=== PATIENT | female | born 1990 | race American Indian/Alaskan Native ===

== ENCOUNTER 2017-02-18 02:48 | Emergency (ER) | payer MEDICAID ==
[2017-02-18] MEDS ORDERED: DUONEB 0.5 MG-3 MG/3 ML SOLN IH ONE ×4 (02:56→04:00)
--- NOTE | 2017-02-18 07:11 | Emergency Department Report ---
ED Asthma HPI - General Chief Complaint: Adult Asthma Stated Complaint: ASTHMA Time Seen by Provider: 02/18/17 06:54 Source: patient, EMS, RN notes reviewed Mode of arrival: Stretcher Limitations: No Limitations - History of Present Illness Initial Comments: 27-year-old female presents to the emergency department via EMS complaining of an asthma attack. Patient states she began having difficulty breathing at approximately 3 PM yesterday afternoon. Patient reports wheezing with tightness in her chest. There was also a mild nonproductive cough. She denies fevers. Patient states she is 3 months and has been using her albuterol inhaler at home. EMS administered 5 mg of albuterol, 125 mg of IV Solu-Medrol, and 2 g of IV magnesium. Patient reports feeling better at this time. There are no other complaints. MD Complaint: "asthma attack" -: Gradual, days(s) (1) Time: 15:00 Asthma History: childhood onset Severity: mild Context: none known Associated Symptoms: dry cough, chest pain (tightness) Treatments Prior to Arrival: inhaled bronchodilator, IV steroid - Related Data Current Asthma Therapy: inhaled bronchodilator Previous Rx's Medication Instructions Recorded Last Taken Type Albuterol Sulfate [Ventolin HFA] 2 puff IH Q4H PRN #1 [email or web address] 02/18/17 Unknown Rx ED Review of Systems ROS: Stated complaint: ASTHMA Other details as noted in HPI Comment: All other systems reviewed and negative Respiratory: cough, shortness of breath, wheezing Cardiovascular: chest pain ED Past Medical Hx - Past Medical History Previous Medical History?: Yes Hx Asthma: Yes - Surgical History Past Surgical History?: No - Family History Family history: no significant - Social History Smoking Status: Never Smoker Substance Use Type: None - Medications Home Medications: Home Medications Medication Instructions Recorded Confirmed Last Taken Type Albuterol Sulfate [Ventolin HFA] 2 puff IH Q4H PRN #1 [email or web address] 02/18/17 Unknown Rx ED Physical Exam - General Limitations: No Limitations General appearance: alert, in no apparent distress - Head Head exam: Present: atraumatic, normocephalic - Eye Eye exam: Present: normal appearance, PERRL, EOMI - ENT ENT exam: Present: normal exam, normal orophraynx, mucous membranes moist - Neck Neck exam: Present: normal inspection, full ROM. Absent: tenderness - Respiratory Respiratory exam: Present: normal lung sounds bilaterally. Absent: respiratory distress - Cardiovascular Cardiovascular Exam: Present: normal rhythm, tachycardia, normal heart sounds - GI/Abdominal GI/Abdominal exam: Present: soft, normal bowel sounds. Absent: distended, tenderness - Extremities Exam Extremities exam: Present: normal inspection, full ROM. Absent: tenderness - Back Exam Back exam: Present: normal inspection, full ROM. Absent: tenderness - Neurological Exam Neurological exam: Present: alert, oriented X3. Absent: motor sensory deficit - Skin Skin exam: Present: warm, dry, intact ED Course Vital Signs 02/18/17 02/18/17 02/18/17 02:48 02:50 03:00 Temperature 98.1 F Pulse Rate 125 H 108 H Pulse Rate [ Bilateral Throughout] Respiratory 24 19 Rate Respiratory Rate [Bilateral Throughout] Blood Pressure 142/96 132/60 Blood Pressure [Right] O2 Sat by Pulse 100 100 100 Oximetry 02/18/17 02/18/17 02/18/17 03:30 04:00 04:16 Temperature Pulse Rate 119 H 133 H Pulse Rate [ 111 H Bilateral Throughout] Respiratory 17 22 Rate Respiratory 25 H Rate [Bilateral Throughout] Blood Pressure 127/64 127/64 Blood Pressure 127/64 [Right] O2 Sat by Pulse 100 96 95 Oximetry 02/18/17 02/18/17 02/18/17 04:30 05:00 05:30 Temperature Pulse Rate 116 H 112 H Pulse Rate [ 120 H Bilateral Throughout] Respiratory 17 15 18 Rate Respiratory 23 Rate [Bilateral Throughout] Blood Pressure 121/67 125/71 115/68 Blood Pressure [Right] O2 Sat by Pulse 96 96 96 Oximetry 02/18/17 02/18/17 06:00 06:30 Temperature Pulse Rate 116 H Pulse Rate [ Bilateral Throughout] Respiratory 16 16 Rate Respiratory Rate [Bilateral Throughout] Blood Pressure 123/62 129/71 Blood Pressure [Right] O2 Sat by Pulse 97 97 Oximetry ED Medical Decision Making - EKG Data -: EKG Interpreted by Me EKG shows normal: sinus rhythm, axis, intervals, QRS complexes, ST-T waves Rate: tachycardia - EKG Data When compared to previous EKG there are: previous EKG unavailable Interpretation: normal EKG - Medical Decision Making Patient has remained asymptomatic following her EMS treatments. Patient remains tachycardic, but is currently 3 months and maintains a normal oxygen saturation on room air. Patient will be discharged home at this time to follow up with her HARDENER HELPER. - Differential Diagnosis asthma exacerbation Critical care attestation.: If time is entered above; I have spent that time in minutes in the direct care of this critically ill patient, excluding procedure time. ED Disposition Clinical Impression: Asthma affecting , antepartum Disposition: DISCHARGED TO HOME OR SELFCARE Is pt being admited?: No Condition: Stable Instructions: Asthma (ED) Additional Instructions: Take all medications as directed. Be sure to follow up with your doctor. If symptoms worsen, or if new symptoms develop, return to the emergency department. Prescriptions: Albuterol Sulfate [Ventolin HFA] 2 puff IH Q4H PRN #1 [email or web address] PRN Reason: Shortness Of Breath Referrals: PRIMARY CARE, [Primary Care Provider] - 3-5 Days Time of Disposition: 07:15
[2017-02-18] MEDS ORDERED: PROVENTIL IH ONE (07:54)
[2017-02-18 08:37] VITALS: BP 118/68
== END 2017-02-18 08:36 | disposition home or self-care (01) ==
LOC: ED 02:48
DX: O99.511 Diseases of the respiratory system complicating pregnancy, first trimester (principal)
CPT/HCPCS: 93005; 93010; 94640

== ENCOUNTER 2018-01-22 05:26 | Emergency (ER) | payer MEDICAID ==
[2018-01-22] MEDS ORDERED: MAGNESIUM SULFATE 2GM/50ML 2 GM/50 ML BAG IV ONE (05:50)
[2018-01-22] MEDS ORDERED: PROVENTIL IH ONE ×2 (05:50→06:04)
[2018-01-22] MEDS ORDERED: ATROVENT IH ONE ×2 (05:50→05:51)
[2018-01-22] MEDS ORDERED: PROAIR IH PRN (05:51)
[2018-01-22] MEDS ORDERED: ZOFRAN ONE (05:57)
[2018-01-22] MEDS ORDERED: ZOFRAN IV ONE (06:02)
--- NOTE | 2018-01-22 08:53 | Emergency Department Report ---
ED Shortness of Breath HPI - General Chief Complaint: Dyspnea/Respdistress Stated Complaint: JOSUE Time Seen by Provider: 01/22/18 08:37 Source: patient Mode of arrival: Ambulatory Limitations: No Limitations - History of Present Illness Initial Comments: History of asthma here evaluation for acute exacerbation, no fever no chest pain or swelling no body aches no headache no stiff neck no rash does have tachycardia that was present on last visit for same when she was preg and felt to be related to preg and bronchodilators, no calf pain or swelling, delivered 4 months ago, does have green cough, isnot on any preventive meds just rescue inh Complaint: "asthma attack" Known History Of: asthma Associated Symptoms: denies other symptoms - Related Data Previous Rx's Medication Instructions Recorded Last Taken Type Albuterol Sulfate [Ventolin HFA] 2 puff IH Q4H PRN #1 [email or web address] 01/22/18 Unknown Rx Azithromycin 250 mg PO DAILY #6 tablet 01/22/18 Unknown Rx Prednisone 50 mg PO DAILY #5 tablet 01/22/18 Unknown Rx Allergies Allergy/AdvReac Type Severity Reaction Status Date / Time No Known Allergies Allergy Verified 09/01/17 21:37 ED Review of Systems ROS: Stated complaint: JOSUE Other details as noted in HPI Comment: All other systems reviewed and negative Constitutional: denies: diaphoresis, fever, malaise, weakness ENT: denies: dental pain, hearing loss, epistaxis Respiratory: cough, shortness of breath, wheezing. denies: orthopnea, SOB with exertion, SOB at rest, stridor Cardiovascular: denies: chest pain, palpitations, dyspnea on exertion, orthopnea , edema, syncope, paroxysmal nocturnal dyspnea Endocrine: denies: excessive sweating, flushing, intolerance to cold, intolerance to heat Gastrointestinal: denies: abdominal pain, nausea, vomiting, diarrhea, constipation, hematemesis, melena, hematochezia Musculoskeletal: denies: joint swelling, arthralgia, myalgia Neurological: denies: numbness, paresthesias, confusion, abnormal gait, vertigo Psychiatric: denies: auditory hallucinations, visual hallucinations, homicidal thoughts, suicidal thoughts ED Past Medical Hx - Past Medical History Hx Hypertension: No Hx Diabetes: No Hx Deep Vein Thrombosis: No Hx Renal Disease: No Hx Sickle Cell Disease: No Hx Seizures: No Hx Asthma: Yes (currently - albuteral 2x a month) Hx HIV: No - Social History Smoking Status: Never Smoker Substance Use Type: None - Medications Home Medications: Home Medications Medication Instructions Recorded Confirmed Last Taken Type Albuterol Sulfate [Ventolin HFA] 2 puff IH Q4H PRN #1 [email or web address] 01/22/18 Unknown Rx Azithromycin 250 mg PO DAILY #6 tablet 01/22/18 Unknown Rx Prednisone 50 mg PO DAILY #5 tablet 01/22/18 Unknown Rx ED Physical Exam - General Limitations: No Limitations General appearance: alert, anxious - Head Head exam: Present: atraumatic, normocephalic - Eye Eye exam: Present: PERRL, EOMI - ENT ENT exam: Present: normal exam, normal orophraynx - Neck Neck exam: Present: normal inspection. Absent: tenderness, meningismus - Respiratory Respiratory exam: Present: wheezes, rhonchi, prolonged expiratory. Absent: stridor, chest wall tenderness, accessory muscle use - Cardiovascular Cardiovascular Exam: Present: tachycardia - GI/Abdominal GI/Abdominal exam: Present: soft. Absent: tenderness, guarding, rebound, mass, pulsatile mass - Extremities Exam Extremities exam: Present: normal inspection. Absent: tenderness, normal capillary refill, pedal edema, joint swelling, calf tenderness - Back Exam Back exam: Present: normal inspection. Absent: CVA tenderness (R), CVA tenderness (L), muscle spasm, paraspinal tenderness, vertebral tenderness - Neurological Exam Neurological exam: Present: alert, oriented X3, CN II-XII intact. Absent: motor sensory deficit ED Course Vital Signs 01/22/18 01/22/18 01/22/18 05:34 05:38 05:46 Temperature 97.7 F Pulse Rate 147 H 145 H 147 H Pulse Rate [ Right Middle Lobe] Respiratory 38 H 27 H 31 H Rate Respiratory Rate [Right Middle Lobe] Blood Pressure Blood Pressure 143/92 [Right] O2 Sat by Pulse 91 91 Oximetry 01/22/18 01/22/18 01/22/18 06:00 06:12 06:16 Temperature Pulse Rate 120 H 105 H Pulse Rate [ 94 H Right Middle Lobe] Respiratory 21 20 Rate Respiratory 20 Rate [Right Middle Lobe] Blood Pressure Blood Pressure [Right] O2 Sat by Pulse 98 99 Oximetry 01/22/18 01/22/18 01/22/18 06:19 06:30 06:45 Temperature Pulse Rate 101 H 120 H Pulse Rate [ Right Middle Lobe] Respiratory 30 H 18 16 Rate Respiratory Rate [Right Middle Lobe] Blood Pressure 118/76 Blood Pressure [Right] O2 Sat by Pulse 99 100 Oximetry 01/22/18 01/22/18 01/22/18 06:47 07:00 07:15 Temperature Pulse Rate 116 H 126 H 118 H Pulse Rate [ Right Middle Lobe] Respiratory 24 18 21 Rate Respiratory Rate [Right Middle Lobe] Blood Pressure 118/76 113/77 Blood Pressure 118/76 [Right] O2 Sat by Pulse 100 98 99 Oximetry 01/22/18 01/22/18 01/22/18 07:30 07:45 08:00 Temperature Pulse Rate 141 H 136 H 140 H Pulse Rate [ Right Middle Lobe] Respiratory 29 H 17 29 H Rate Respiratory Rate [Right Middle Lobe] Blood Pressure 113/77 115/66 115/66 Blood Pressure [Right] O2 Sat by Pulse 97 98 95 Oximetry 01/22/18 01/22/18 01/22/18 08:15 08:30 08:46 Temperature Pulse Rate 133 H 135 H 142 H Pulse Rate [ Right Middle Lobe] Respiratory 18 18 18 Rate Respiratory Rate [Right Middle Lobe] Blood Pressure 127/70 113/77 120/70 Blood Pressure [Right] O2 Sat by Pulse Oximetry 01/22/18 01/22/18 01/22/18 09:00 09:16 09:22 Temperature Pulse Rate 152 H 134 H 146 H Pulse Rate [ Right Middle Lobe] Respiratory 21 17 20 Rate Respiratory Rate [Right Middle Lobe] Blood Pressure 114/67 114/67 Blood Pressure 114/67 [Right] O2 Sat by Pulse 98 Oximetry 01/22/18 01/22/18 01/22/18 09:30 09:46 10:00 Temperature Pulse Rate 153 H 147 H 142 H Pulse Rate [ Right Middle Lobe] Respiratory 22 19 18 Rate Respiratory Rate [Right Middle Lobe] Blood Pressure 114/67 114/67 112/50 Blood Pressure [Right] O2 Sat by Pulse 97 99 100 Oximetry 01/22/18 01/22/18 01/22/18 10:16 11:00 11:30 Temperature Pulse Rate 154 H 135 H 132 H Pulse Rate [ Right Middle Lobe] Respiratory 18 20 16 Rate Respiratory Rate [Right Middle Lobe] Blood Pressure 112/50 112/50 112/50 Blood Pressure [Right] O2 Sat by Pulse 97 97 98 Oximetry 01/22/18 01/22/18 01/22/18 12:00 12:30 12:46 Temperature Pulse Rate 120 H 129 H 131 H Pulse Rate [ Right Middle Lobe] Respiratory 18 20 20 Rate Respiratory Rate [Right Middle Lobe] Blood Pressure 101/49 101/49 101/49 Blood Pressure [Right] O2 Sat by Pulse 96 97 97 Oximetry 01/22/18 01/22/18 01/22/18 13:00 13:16 13:30 Temperature Pulse Rate 125 H 126 H 118 H Pulse Rate [ Right Middle Lobe] Respiratory 17 18 20 Rate Respiratory Rate [Right Middle Lobe] Blood Pressure 101/50 101/50 101/50 Blood Pressure [Right] O2 Sat by Pulse 96 96 97 Oximetry 01/22/18 01/22/18 01/22/18 13:46 14:00 14:16 Temperature Pulse Rate 119 H 117 H 122 H Pulse Rate [ Right Middle Lobe] Respiratory 19 16 18 Rate Respiratory Rate [Right Middle Lobe] Blood Pressure 101/50 119/50 101/50 Blood Pressure [Right] O2 Sat by Pulse 96 96 97 Oximetry ED Medical Decision Making - Lab Data Result diagrams: 01/22/18 12:31 01/22/18 12:31 - EKG Data -: EKG Interpreted by Ri EKG shows normal: sinus rhythm Rate: tachycardia - EKG Data Interpretation: other 01/22/18 14:55 No acute ischemic change - Radiology Data Radiology results: report reviewed - Medical Decision Making Patient did have multiple Nebc in ED and steroids, intervals were improving she was noted to have a persistent tachycardia to 140 EKG shows a sinus tach the tachycardia does improve to 120 with fluids she does seem to be somewhat anxious and does seem to have a tachycardia related to the bronchodilators. The patient had a negative d-dimer no history of suggests DVT or PE at this time although she is 4 months . Chest x-ray was negative. Symptoms do seem related to a chronic resting tachycardia exacerbated by sympathomimetic with acute asthma exacerbation. She is stable for outpatient follow-up with steroid antibiotic and continue her inhaler she is to see the agricultural real estate agent environmental services assistant to arrange outpatient management of her asthma Critical care attestation.: If time is entered above; I have spent that time in minutes in the direct care of this critically ill patient, excluding procedure time. ED Disposition Clinical Impression: Sinus tachycardia, Asthma exacerbation Disposition: DC- TO HOME OR SELFCARE Is pt being admited?: No Condition: Stable Instructions: Asthma (ED) Additional Instructions: Return if new or alarming symptoms see the doctor listed Prescriptions: Albuterol Sulfate [Ventolin HFA] 2 puff IH Q4H PRN #1 [email or web address] PRN Reason: Shortness Of Breath Azithromycin 250 mg PO DAILY #6 tablet Prednisone 50 mg PO DAILY #5 tablet Referrals: HEIDE CHAPA MD [Primary Care Provider] - 3-5 Days Time of Disposition: 15:03
[2018-01-22] MEDS ORDERED: NACL 0.9% 1000 ML 1,000 ML IV ONE (10:47)
[2018-01-22] MEDS ORDERED: ATIVAN IV ONE (10:50)
[2018-01-22 13:09] LABS: Hematocrit 40.7 % (30.3-42.9); Hemoglobin 13.4 gm/dl (10.1-14.3); Mean Corpuscular HGB Conc 33 % (30-34); Mean Corpuscular Hemoglobin 27 pg (28-32); Mean Corpuscular Volume 81 fl (79-97); Platelet Count 144 K/mm3 (140-440); Red Blood Count 5.04 M/mm3 (3.65-5.03); Red Cell Distribution Width 12.8 % (13.2-15.2)
[2018-01-22 13:34] LABS: Alanine Aminotransferase 32 units/L (7-56); Albumin 3.8 g/dL (3.9-5); BUN/Creatinine Ratio 22; Blood Urea Nitrogen 13 mg/dL (7-17); Calcium 8.9 mg/dL (8.4-10.2); Hemolysis Index 4
[2018-01-22 13:56] LABS: Basophils % (Manual) 0 % (0.0-1.8); Eosinophils % (Manual) 0 % (0.0-4.3); Platelet Estimate Consistent w Auto; RBC Morphology Normal; Total Cells Counted 100
--- NOTE | 2018-01-22 14:40 | XRay Report ---
CHEST 2 VIEWS INDICATION: Wheezing. COMPARISON: None similar at this institution. FINDINGS: PA and lateral chest radiographs demonstrate normal cardiomediastinal silhouette. Clear lungs. Intact bones. CONCLUSION: No acute disease in the chest. Thank you for the opportunity to participate in this patient's care.
[2018-01-22 15:14] VITALS: BP 117/53
== END 2018-01-22 15:16 | disposition home or self-care (01) ==
LOC: ED 05:26
DX: J45.901 Unspecified asthma with (acute) exacerbation (principal)
CPT/HCPCS: 36415; 71046; 80053; 84703; 85007; 85025; 85379; 93005; 93010; 96361; 96365; 96375; 99284; J2405; J2930; J3475; J7030